=== PATIENT | male | born 1960 | race Caucasian/White ===

== ENCOUNTER 2021-08-20 06:44 | Day surgery (SDC) | payer OTHER, SELFPAY ==
[~2021-08-20] VITALS: Ht 170.2 cm; Wt 68.0 kg
[2021-08-20] MEDS ORDERED: MEPERIDINE 100 MG INJ. 100 MG/ML VIAL ONE (07:12)
[2021-08-20] MEDS ORDERED: SIMETHICONE 40 MG/0.6 ML ML ONE (07:12)
[2021-08-20] MEDS ORDERED: MIDAZOLAM HCL 5 MG/5 ML VIAL ONE ×2 (07:13→09:19)
[2021-08-20 13:15] VITALS: BP_SYST 113
== END 2021-08-20 10:10 | disposition home or self-care (01) ==
LOC: SMU 06:44 → SDS 06:44
PROVIDERS: ATTEND Internal Medicine Gastroenterology
DX: Z12.11 Encounter for screening for malignant neoplasm of colon (principal); D12.4 Benign neoplasm of descending colon; D12.5 Benign neoplasm of sigmoid colon; K57.30 Diverticulosis of large intestine without perforation or abscess without bleeding; K64.8 Other hemorrhoids; Z86.010 Personal history of colon polyps; Z20.822 Contact with and (suspected) exposure to COVID-19; Z79.899 Other long term (current) drug therapy
CPT/HCPCS: 36415; 45380; 45385; 87426; 88305; 99152; 99153; G0378; J2175; J2250; U0003